=== PATIENT | female | born 1950 | race Caucasian/White ===

== ENCOUNTER → 2017-07-02 | Outpatient (CLI) | payer BC ==
--- NOTE | 2017-07-04 06:55 | MM ---
Reason for exam: screening (asymptomatic). Last mammogram was performed 1 year and 2 months ago. History: Patient is postmenopausal and had first child at age 34. Family history of breast cancer in maternal cousin at age 29 and breast cancer in maternal aunt at age 65. Benign stereotactic core biopsy of the left breast, May 15, 2003. Core biopsy of the left breast. Took hormonal contraceptives for 5 years. Physical Findings: A clinical breast exam by your physician is recommended on an annual basis and results should be correlated with mammographic findings. MG Screening Mammo w CAD Bilateral CC and MLO view(s) were taken. Prior study comparison: May 12, 2016, bilateral MG screening mammo w CAD. March 22, 2015, bilateral MG diagnostic mammo w CAD [facility]. There are scattered fibroglandular densities. Previous mammotome biopsy in the left breast. No significant changes when compared with prior studies. ASSESSMENT: Benign, BI-RAD 2 RECOMMENDATION: Routine screening mammogram of both breasts in 1 year.
== END | disposition home or self-care (01) ==
LOC: RADMAMWWP 16:15
PROVIDERS: ATTEND Family Medicine
DX: Z12.31 Encounter for screening mammogram for malignant neoplasm of breast (principal)
CPT/HCPCS: 77067

== ENCOUNTER → 2018-09-06 | Outpatient (CLI) | payer BC ==
--- NOTE | 2018-09-10 08:53 | MM ---
Reason for exam: screening (asymptomatic). Last mammogram was performed 1 year and 2 months ago. History: Patient is postmenopausal and had first child at age 34. Family history of breast cancer in maternal cousin at age 29 and breast cancer in maternal aunt at age 65. Benign stereotactic core biopsy of the left breast, May 15, 2003. Core biopsy of the left breast. Took hormonal contraceptives for 5 years. Physical Findings: A clinical breast exam by your physician is recommended on an annual basis and results should be correlated with mammographic findings. MG 3D Screening Mammo W/Cad Bilateral CC and MLO view(s) were taken. Prior study comparison: July 02, 2017, bilateral MG screening mammo w CAD. May 12, 2016, bilateral MG screening mammo w CAD. There are scattered fibroglandular densities. Previous mammotome biopsy in the left breast. Subareolar nodular asymmetry on the right CC view is unchanged. No significant changes when compared with prior studies. ASSESSMENT: Negative, BI-RAD 1 RECOMMENDATION: Routine screening mammogram of both breasts in 1 year.
== END | disposition home or self-care (01) ==
LOC: RADMAMWWP 16:37
PROVIDERS: ATTEND Family Medicine
DX: Z12.31 Encounter for screening mammogram for malignant neoplasm of breast (principal)
CPT/HCPCS: 77063; 77067

== ENCOUNTER → 2019-12-05 | Outpatient (CLI) | payer BC ==
--- NOTE | 2019-12-09 11:30 | MM ---
Reason for exam: screening (asymptomatic). Last mammogram was performed 1 year and 3 months ago. History: Patient is postmenopausal and had first child at age 34. Family history of breast cancer in maternal cousin at age 29 and breast cancer in maternal aunt at age 65. Benign stereotactic core biopsy of the left breast, May 15, 2003. Core biopsy of the left breast. Took hormonal contraceptives for 5 years. Physical Findings: A clinical breast exam by your physician is recommended on an annual basis and results should be correlated with mammographic findings. MG 3D Screening Mammo W/Cad Bilateral CC and MLO view(s) were taken. Prior study comparison: September 06, 2018, bilateral MG 3d screening mammo w/cad. July 02, 2017, bilateral MG screening mammo w CAD. The breast tissue is heterogeneously dense. This may lower the sensitivity of mammography. There are benign appearing vascular calcifications in the right breast. Previous mammotome biopsy in the left breast. Asymmetric breast tissue upper outer aspect stable. There is no discrete abnormality. ASSESSMENT: Benign, BI-RAD 2 RECOMMENDATION: Routine screening mammogram of both breasts in 1 year.
== END | disposition home or self-care (01) ==
LOC: RADMAMWWP 10:25
PROVIDERS: ATTEND Family Medicine
DX: Z12.31 Encounter for screening mammogram for malignant neoplasm of breast (principal)
CPT/HCPCS: 77063; 77067

== ENCOUNTER → 2020-01-02 | Outpatient (CLI) | payer BC ==
--- NOTE | 2020-01-02 14:20 | XR ---
Right hip history: Right hip pain, recent trauma 2 views of the right hip There is joint space loss, marginal spurring present with subchondral sclerosis and geode formation. Alignment is maintained. Bone mineralization overall is decreased. No fracture or dislocation. IMPRESSION: Osteoarthritis, no fracture or dislocation.
== END | disposition home or self-care (01) ==
LOC: RADXRMAIN 13:39
PROVIDERS: ATTEND Family Medicine
DX: M25.551 Pain in right hip (principal); M16.11 Unilateral primary osteoarthritis, right hip
CPT/HCPCS: 73502

== ENCOUNTER → 2020-04-14 | Outpatient (CLI) | payer BC ==
--- NOTE | 2020-04-14 16:36 | US ---
EXAMINATION TYPE: US transvaginal DATE OF EXAM: 04/14/2020 COMPARISON: CT 03/06/12 CLINICAL HISTORY: N83.202 unspecified ovarian cyst. F/U on LT Ovary cyst seen on recent MRI; c-sectio n x 1; tubal ligation TECHNIQUE: Transvaginal (TV). Transvaginal sonographic images were medically necessary to better as sess the following anatomy: Uterus Date of LMP: post menopausal EXAM MEASUREMENTS: Uterus: 5.1 x 2.8 x 4.3 cm Endometrial Stripe: 0.7 cm Right Ovary: Not visualized Left Ovary: 4.1 x 2.9 x 4.6 cm 1. Uterus: wnl 2. Endometrium: 0.4 cm of fluid seen within the endometrial canal. No thickening of the endometrial stripe. 3. Right Ovary: Obscured by overlying bowel gas 4. Left Ovary: Cyst with septation measuring 4.2 x 3.0 x 4.3 cm, with no evidence of mural nodulari ty or internal color Doppler flow. 5. Bilateral Adnexa: wnl 6. Posterior cul-de-sac: Minimal amount of free fluid seen IMPRESSION: 1. Septated benign-appearing left ovarian cyst measuring 4.3 cm. No evidence of mural nodularity or i nternal color Doppler flow. 2. Nonvisualization of the right ovary. 3. Trace fluid within the endometrial canal. 4. Minimal pelvic free fluid.
== END | disposition home or self-care (01) ==
LOC: RADUSWWP 14:51
PROVIDERS: ATTEND Family Medicine
DX: N83.202 Unspecified ovarian cyst, left side (principal); R18.8 Other ascites
CPT/HCPCS: 76830

== ENCOUNTER → 2020-05-25 | Outpatient (CLI) | payer BC | END | disposition home or self-care (01) | LOC: LABWHC1 10:30 | PROVIDERS: ATTEND Obstetrics & Gynecology Obstetrics | DX: N83.209 Unspecified ovarian cyst, unspecified side (principal) | CPT/HCPCS: 36415 ==

== ENCOUNTER → 2020-12-09 | Outpatient (CLI) | payer BC ==
--- NOTE | 2020-12-10 12:38 | MM ---
Reason for exam: screening (asymptomatic). Last mammogram was performed 1 year ago. History: Patient is postmenopausal and had first child at age 34. Family history of breast cancer in maternal cousin at age 29 and breast cancer in maternal aunt at age 65. Benign stereotactic core biopsy of the left breast, May 15, 2003. Core biopsy of the left breast. Took hormonal contraceptives for 5 years. Physical Findings: A clinical breast exam by your physician is recommended on an annual basis and results should be correlated with mammographic findings. MG 3D Screening Mammo W/Cad Bilateral CC and MLO view(s) were taken. Prior study comparison: December 05, 2019, bilateral MG 3d screening mammo w/cad. September 06, 2018, bilateral MG 3d screening mammo w/cad. There are scattered fibroglandular densities. Left biopsy clip. ASSESSMENT: Benign, BI-RAD 2 RECOMMENDATION: Routine screening mammogram of both breasts in 1 year.
== END | disposition home or self-care (01) ==
LOC: RADMAMWWP 14:51
PROVIDERS: ATTEND Family Medicine
DX: Z12.31 Encounter for screening mammogram for malignant neoplasm of breast (principal); Z78.0 Asymptomatic menopausal state; Z80.3 Family history of malignant neoplasm of breast
CPT/HCPCS: 77063; 77067

== ENCOUNTER → 2021-01-03 | Outpatient (CLI) | payer BC ==
--- NOTE | 2021-01-04 09:24 | US ---
EXAMINATION TYPE: US transvaginal DATE OF EXAM: 01/03/2021 COMPARISON: 04/14/2020 CLINICAL HISTORY: N83.202 OVARIAN CYST. Follow up left ovarian cyst TECHNIQUE: . Transvaginal sonographic images of the pelvis were acquired. Date of LMP: Age 44 EXAM MEASUREMENTS: Uterus: 5.5 x 2.6 x 4.0 cm Endometrial Stripe: 0.2 cm Right Ovary: 1.9 x 1.2 x 1.2 cm 1. Uterus: Anteverted Nabothian cyst visualized 2. Endometrium: Fluid visualized within endometrium 3. Right Ovary: wnl 4. Left Ovary: See below 5. Bilateral Adnexa: Within the left adnexa, there is a cystic area with septations visualized measu ring 5.2 x 3.5 x 4.5 cm. This previously measured 4.2 x 3.0 x 4.3 on 04/14/2020 6. Posterior cul-de-sac: wnl IMPRESSION: 1. The complex cystic lesion in the left adnexa has increased in size and now measures 5.2 x 3.5 x 4. 5 cm, previously measured 4.2 x 3.0 x 4.3 cm. This is may represent cystic neoplasm. MRI with and wit hout contrast could be performed if clinically warranted. 2. Fluid is again seen within the endometrial canal.
== END | disposition home or self-care (01) ==
LOC: RADUSWWP 15:45
PROVIDERS: ATTEND Family Medicine
DX: N83.202 Unspecified ovarian cyst, left side (principal)
CPT/HCPCS: 76830

== ENCOUNTER → 2021-01-31 | Outpatient (CLI) | payer BC ==
--- NOTE | 2021-02-01 02:16 | MR ---
EXAMINATION TYPE: MR pelvis wo/w con DATE OF EXAM: 01/31/2021 COMPARISON: Pelvic ultrasound 01/03/2021 HISTORY: Unspecified ovarian cyst, left side CONTRAST: Standard multiplanar, multisequence MRI departmental protocol utilizing 9 mL intravenous Gadavist kishore olinium contrast. The uterus is anteverted and has fairly normal size and contour. Uterus measures 6 cm in length. Ther e is a sharply marginated cystic mass in the left adnexal region. This measures 5.4 x 4 cm. The wall appears thin. There is a small internal septation. There is uniform fluid content. There is no free f luid in the pelvis. Urinary bladder appears intact. There is 5 mm cervical cyst. There is metal artifact from right hip prosthesis. Perirectal soft tissues appear normal. Left hip paige int appears intact. IMPRESSION: Thin-walled cystic mass with single internal septation in the left adnexa is probably ovarian cyst an d not changed in size allowing for error of measurement compared to previous ultrasound. No significant abnormality of the uterus.
== END | disposition home or self-care (01) ==
LOC: RADMRIMAIN 17:39
PROVIDERS: ATTEND Family Medicine
DX: N83.202 Unspecified ovarian cyst, left side (principal)
CPT/HCPCS: 72197; A9585

== ENCOUNTER 2021-06-04 10:46 | Emergency (ER) | payer MEDICARE, BC ==
[2021-06-04] MEDS ORDERED: SODIUM CHLORIDE 0.9% 1,000 ML IV STA (11:37)
--- NOTE | 2021-06-04 11:42 | ED ---
General Adult HPI - General Chief complaint: Weakness Stated complaint: Covid+/antibodies Time Seen by Provider: 06/04/21 11:18 Source: patient, RN notes reviewed Mode of arrival: ambulatory Limitations: no limitations - History of Present Illness Initial comments: 70-year-old female with a past medical history of hypertension presents to the emergency room for a chief complaint of weakness. She has started to develop symptoms of COVID-19 on 05/30/2021. Patient tested positive for COVID-19 on 06/01/2021. Patient states that she has hot flashes and weakness. She has some mild shortness of breath but no significant difficulty breathing. Slight low back. Patient states overall she feels just fine. States her daughter was concerned and sent her into the ER to get antibody infusion.Patient has no other complaints at this time including shortness of breath, chest pain, abdominal pain, nausea or vomiting, headache, or visual changes. - Related Data Allergies Allergy/AdvReac Type Severity Reaction Status Date / Time erythromycin base Allergy Rash/Hives Verified 06/04/21 11:07 Review of Systems ROS Statement: Those systems with pertinent positive or pertinent negative responses have been documented in the HPI. ROS Other: All systems not noted in ROS Statement are negative. Past Medical History Past Medical History: Hypertension History of Any Multi-Drug Resistant Organisms: None Reported Past Surgical History: No Surgical Hx Reported Past Psychological History: No Psychological Hx Reported Smoking Status: Never smoker Past Alcohol Use History: Rare Past Drug Use History: None Reported General Exam Limitations: no limitations General appearance: alert, in no apparent distress Head exam: Present: atraumatic Eye exam: Present: normal appearance, PERRL, EOMI ENT exam: Present: normal exam, mucous membranes moist Neck exam: Present: normal inspection, full ROM. Absent: tenderness Respiratory exam: Present: normal lung sounds bilaterally. Absent: respiratory distress, wheezes Cardiovascular Exam: Present: regular rate, normal rhythm, normal heart sounds GI/Abdominal exam: Present: soft, normal bowel sounds. Absent: distended, tenderness Neurological exam: Present: alert Course Vital Signs 06/04/21 06/04/21 06/04/21 11:02 11:53 13:17 Temperature 98.4 F Pulse Rate 100 74 Respiratory 18 16 16 Rate Blood Pressure 101/70 97/58 O2 Sat by Pulse 95 98 Oximetry Medical Decision Making - Medical Decision Making Vitals are stable. CBC unremarkable. CMP does show some mild dehydration, given fluids. Checks x-ray shows no acute process. At this time patient is stable for continued outpatient follow-up. She does qualify for antibody infusion and does wish to have this performed. In fact this is why patient presented to the emergency room in the first. Patient was monitored for an hour after infusion. She will follow-up with her doctor. She will return here for any worsening symptoms such as worsening shortness of breath. - Lab Data Result diagrams: 06/04/21 12:12 06/04/21 12:12 Lab Results 06/04/21 06/04/21 Range/Units 12:12 12:12 WBC 4.6 (3.8-10.6) k/uL RBC 4.55 (3.80-5.40) m/uL Hgb 12.9 (11.4-16.0) gm/dL Hct 39.3 (34.0-46.0) % MCV 86.2 (80.0-100.0) fL MCH 28.4 (25.0-35.0) pg MCHC 32.9 (31.0-37.0) g/dL RDW 15.0 (11.5-15.5) % Plt Count 168 (150-450) k/uL MPV 9.5 Neutrophils % 69 % Lymphocytes % 19 % Monocytes % 8 % Eosinophils % 1 % Basophils % 0 % Neutrophils # 3.2 (1.3-7.7) k/uL Lymphocytes # 0.9 L (1.0-4.8) k/uL Monocytes # 0.4 (0-1.0) k/uL Eosinophils # 0.1 (0-0.7) k/uL Basophils # 0.0 (0-0.2) k/uL Sodium 133 L (137-145) mmol/L Potassium 4.1 (3.5-5.1) mmol/L Chloride 99 (98-107) mmol/L Carbon Dioxide 23 (22-30) mmol/L Anion Gap 11 mmol/L BUN 25 H (7-17) mg/dL Creatinine 1.51 H (0.52-1.04) mg/dL Est GFR (CKD-EPI)AfAm 40 (>60 ml/min/1.73 sqM) Est GFR (CKD-EPI)NonAf 35 (>60 ml/min/1.73 sqM) Glucose 95 (74-99) mg/dL Calcium 9.2 (8.4-10.2) mg/dL Disposition Clinical Impression: COVID-19, Dehydration Disposition: HOME SELF-CARE Condition: Good Instructions (If sedation given, give patient instructions): Coronavirus Disease 2019 (COVID-19) Additional Instructions: continue [id number]-[id number] vitamins such as vitamin C, D, and zinc. Return to the emergency room for any worsening symptoms such as shortness of breath. Is patient prescribed a controlled substance at d/c from ED?: No Referrals: Nick Goins DO [Primary Care Provider] - 1-2 days Time of Disposition: 13:24
[2021-06-04 11:58] VITALS: RESP 16
[2021-06-04] MEDS ORDERED: BAMLANIVIMAB (EUA) 700 MG, ETESEVIMAB (EUA) 1,400 MG in SODIUM CHLORIDE 0.9% 50 ML IVPB ONE (12:30)
[2021-06-04 12:35] LABS: Basophils % (A) 0 %; Eosinophils # (A) 0.1 k/uL (0-0.7); Eosinophils % (A) 1 %; HCT 39.3 % (34.0-46.0); HGB 12.9 gm/dL (11.4-16.0); Lymphocytes # (A) 0.9 k/uL (1.0-4.8); Lymphocytes % (A) 19 %; MCH 28.4 pg (25.0-35.0); MCHC 32.9 g/dL (31.0-37.0); MCV 86.2 fL (80.0-100.0); Mean Platelet Volume 9.5; Monocytes # (A) 0.4 k/uL (0-1.0); Monocytes % (A) 8 %; Neutrophils # (A) 3.2 k/uL (1.3-7.7); Neutrophils % (A) 69 %; Platelet Count 168 k/uL (150-450); RBC 4.55 m/uL (3.80-5.40); WBC 4.6 k/uL (3.8-10.6)
[2021-06-04 12:45] LABS: Calcium 9.2 mg/dL (8.4-10.2); Potassium 4.1 mmol/L (3.5-5.1)
[2021-06-04] MEDS ORDERED: SODIUM CHLORIDE 0.9% 50 ML IVPB ONE (13:00)
--- NOTE | 2021-06-04 13:14 | XR ---
EXAMINATION TYPE: XR chest 1V portable DATE OF EXAM: 06/04/2021 COMPARISON: Prior chest x-ray dated 12/29/2009 HISTORY: Cough TECHNIQUE: Single frontal view of the chest is obtained. FINDINGS: There is no focal air space opacity, pleural effusion, or pneumothorax seen. The cardiac silhouette size is within normal limits. Prominent lung volume may be indicative of underlying COPD, there is a prominent epicardial fat pad The osseous structures are intact. IMPRESSION: No acute process.
[2021-06-04 14:37] VITALS: BP 116/59; PULSE 86; TEMP 97
== END 2021-06-04 14:39 | disposition home or self-care (01) ==
LOC: EC 10:46
DX: U07.1 COVID-19 (principal); E86.0 Dehydration; I10 Essential (primary) hypertension; Z72.89 Other problems related to lifestyle
CPT/HCPCS: 96360 ×2; 99285 ×2; 36415; 80048; 85025; 71045; M0239; J3490

== ENCOUNTER → 2021-12-02 | Outpatient (CLI) | payer BC ==
--- NOTE | 2021-12-02 16:01 | CT ---
EXAMINATION TYPE: CT abdomen pelvis wo con DATE OF EXAM: 12/02/2021 COMPARISON: 03/06/2012 HISTORY: RLQ pain CT DLP: 833.3 mGycm Automated exposure control for dose reduction was used. TECHNIQUE: Helical acquisition of images was performed from the lung bases through the pelvis. FINDINGS: LUNG BASES: No significant abnormality is appreciated. Dense coronary artery calcification noted. Hea rt size normal. LIVER/GB: There is a large gallstone. PANCREAS: No significant abnormality is seen. SPLEEN: No significant abnormality is seen. ADRENALS: No significant abnormality is seen. KIDNEYS: No significant abnormality is seen. ADENOPATHY: None visualized. OSSEOUS STRUCTURES: Postsurgical change right. Severe degenerative change L1-L2 with grade 1 anterol isthesis of L4 on L5. Multilevel facet arthropathy with scoliosis.. BOWEL: Bowel gas pattern nonspecific with no obstruction. Surgical clips in the right colon suggests previous appendectomy and firm with prior surgical history. Mild changes of sigmoid diverticulosis. OTHER: No free fluid or free air. Aorta of normal caliber. IMPRESSION: 1. Large gallstone. 2. Cholelithiasis.
== END | disposition home or self-care (01) ==
LOC: RADCTMAIN 14:59
PROVIDERS: ATTEND Family Medicine
DX: K80.20 Calculus of gallbladder without cholecystitis without obstruction (principal)
CPT/HCPCS: 74176

== ENCOUNTER → 2022-01-03 | Outpatient (CLI) | payer BC ==
[2022-01-03 18:58] LABS: Basophils # (A) 0.05 X 10*3/uL (0.00-0.10); Basophils % (A) 0.8 %; Eosinophils # (A) 0.13 X 10*3/uL (0.04-0.35); HCT 34.4 % (37.2-46.3); HGB 10.6 g/dL (12.0-15.0); Immature Grans, Automated 0.2 %; Lymphocytes # (A) 1.64 X 10*3/uL (0.90-5.00); Lymphocytes % (A) 25.6 %; MCH 26.6 pg (27.0-32.0); MCHC 30.8 g/dL (32.0-37.0); MCV 86.2 fL (80.0-97.0); Mean Platelet Volume 12.7 fL (9.5-12.2); Monocytes # (A) 0.73 X 10*3/uL (0.20-1.00); Monocytes % (A) 11.4 %; NRBC Per 100 WBC 0 /100 WBCS (0.0-0.0); Neutrophils # (A) 3.84 X 10*3/uL (1.80-7.70); Platelet Count 273 X 10*3/uL (140-440); RBC 3.99 X 10*6/uL (4.10-5.20); RDW 14.6 % (11.5-14.5)
[2022-01-03 19:05] LABS: African American GFR (CKD) 58.1 (60.0-200.0); Albumin 4.5 g/dL (3.8-4.9); Albumin/Globulin Ratio 1.73 (1.60-3.17); Anion Gap 12.6 mmol/L (10.00-18.00); BUN/Creat Ratio 12.18 Ratio (12.00-20.00); Blood Urea Nitrogen 13.4 mg/dL (9.0-27.0); Calcium 9.7 mg/dL (8.7-10.3); Carbon Dioxide 26.4 mmol/L (20.0-27.5); Globulin 2.6 g/dL (1.6-3.3); Non-African American GFR(CKD) 50.1 (60.0-200.0); T4, Free (Free Thyroxine) 1.48 ng/dL (0.800-1.800); Total Bilirubin 0.2 mg/dL (0.30-1.20); Total Protein 7.1 g/dL (6.2-8.2)
== END | disposition home or self-care (01) ==
LOC: LABWHC1 13:26
PROVIDERS: ATTEND Psychiatry & Neurology Neurology
DX: Z13.21 Encounter for screening for nutritional disorder (principal); E55.9 Vitamin D deficiency, unspecified; R41.3 Other amnesia
CPT/HCPCS: 36415; 80053; 82306; 83036; 83090; 83921; 84439; 84443; 84480; 84481; 85025

== ENCOUNTER → 2022-01-04 | Outpatient (CLI) | payer BC ==
[2022-01-04 10:39] LABS: Appearance,Urine Clear (Clear); Bilirubin,Urine Negative (Negative); Blood,Urine Negative (Negative); Color,Urine Light Yellow; Glucose,Urine (UA) Negative (Negative); Ketones,Urine Negative (Negative); Leukocyte Esterase,Urine Trace (Negative); Nitrite,Urine Negative (Negative); PH, Urine 6.5 (5.0-8.0); Protein,Urine Negative (Negative); Specific Gravity,Urine 1.008 (1.001-1.035); Squamous Epithelial Cell,Urine <1 /hpf (0-4); Urobilinogen,Urine <2.0 mg/dL (<2.0); WBC,Urine 2 /hpf (0-5)
[2022-01-04 17:13] LABS: Chol/HDL Ratio 3.82 Ratio; LDL Cholesterol,Calculated 153.3 mg/dL (0.0-131.0); VLDL Calculation 17.96 mg/dL (5.00-40.00)
== END | disposition home or self-care (01) ==
LOC: LABWHC1 09:46
PROVIDERS: ATTEND Psychiatry & Neurology Neurology
DX: Z13.6 Encounter for screening for cardiovascular disorders (principal); R41.3 Other amnesia
CPT/HCPCS: 36415; 80061; 81001

== ENCOUNTER → 2023-07-26 | Outpatient (CLI) | payer MEDICARE ==
--- NOTE | 2023-07-27 08:43 | MM ---
Reason for Exam: Screening (asymptomatic). Last mammogram was performed 2 year(s) and 8 month(s) ago. Patient History: Menarche at age 12. First Full-Term at age 34. Late child-bearing (after 29). Hysterectomy at age 40. Postmenopausal. Patient used Hormonal Contraceptives for 5 years. Core Biopsy on the Left side. 05/15/2003, Benign Stereotactic Core Biopsy on the left side. Maternal cousin had breast cancer, age 29. Maternal aunt had breast cancer, age 65. Risk Values: Danii 5 year model risk: 3.6%. NCI Lifetime model risk: 8.8%. Prior Study Comparison: 09/06/2018 Bilateral Screening Mammogram, [facility]. 12/05/2019 Bilateral Screening Mammogram, [facility]. 12/09/2020 Bilateral Screening Mammogram, [facility]. Tissue Density: The breast tissue is heterogeneously dense. This may lower the sensitivity of mammography. Findings: Analyzed By CAD. There is no suspicious group of microcalcifications or new suspicious mass in either breast. Overall Assessment: Benign, BI-RAD 2 Management: Screening Mammogram of both breasts in 1 year. . Patient should continue monthly self-breast exams. A clinical breast exam by your physician is recommended on an annual basis. This exam should not preclude additional follow-up of suspicious palpable abnormalities. Note on Danii scores and lifetime risk: 1. A Danii score greater than 3% is considered moderate risk. If this is the case, consider specialist referral to assess eligibility for a risk reducing agent. 2. If overall lifetime risk for the development of breast cancer is 20% or higher, the patient may qualify for future screening with alternating mammogram and breast MRI. Electronically signed and approved by: Malik Reis M.D. Radiologis
== END | disposition home or self-care (01) ==
LOC: RADMAMWWP 13:49
PROVIDERS: ATTEND Family Medicine
DX: Z12.31 Encounter for screening mammogram for malignant neoplasm of breast (principal); Z80.3 Family history of malignant neoplasm of breast; Z78.0 Asymptomatic menopausal state
CPT/HCPCS: 77063; 77067